=== PATIENT | female | born 1950 | race Caucasian/White ===

== ENCOUNTER 2018-03-13 08:42 | Outpatient (CLI) | payer MEDICARE ==
--- NOTE | 2018-03-20 14:46 | MMO ---
BILATERAL SCREENING MAMMOGRAM: Date: 03/13/18 COMPARISON: 03/23/16, 10/09/14. HISTORY: Annual screening exam. This patient's mammogram was interpreted with the assistance of computer-aided detection. FINDINGS: The breasts are heterogeneously dense. There is no dominant mass, suspicious calcification, or other sign of malignancy. Calcifications within the right breast are stable as compared to the previous sharri dy. IMPRESSION: BIRADS 2: Benign Finding(s) POS: GAURI
== END 2018-03-13 08:43 | disposition home or self-care (01) ==
LOC: SCSMAMMO 08:42
PROVIDERS: ATTEND Family Medicine
DX: Z51.81 Encounter for therapeutic drug level monitoring (principal)
CPT/HCPCS: 77067

== ENCOUNTER 2019-06-01 11:44 | Emergency (ER) | payer MEDICARE ==
--- NOTE | 2019-06-01 12:39 | RAD ---
LEFT FOOT 3 VIEWS: HISTORY: Injury. FINDINGS: Tarsals appear intact. Mild degenerative change at the tarsometatarsal joints. A cerclage wire rivas sfixes the proximal 1st metatarsal. 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 Mild DJD at the IP joints. No fracture or focal osseous abnormality. IMPRESSION: No acute findings. POS: OFF
== END 2019-06-01 13:08 | disposition home or self-care (01) ==
LOC: SCSER 11:44
DX: M79.672 Pain in left foot (principal); W11.XXXA Fall on and from ladder, initial encounter